=== PATIENT | male | born 1985 | race Caucasian/White ===

== ENCOUNTER 2020-01-31 15:43 | Inpatient (IN) | payer MEDICARE, MEDICAID, SELFPAY ==
[2020-01-31] VITALS (7 sets, daily range): BP systolic 147–230; BP diastolic 80–92; PULSE 94–121; RESP 22–32; TEMP 36.1–36.5; O2SAT 90–99; BMI 35.6
--- NOTE | ~2020-01-31 | XR_ITS ---
EXAMINATION: XR chest 1V portable EXAM DATE: 01/31/2020 16:19 INDICATION: CHF. Large mid edema. TECHNIQUE: Portable AP frontal chest x-ray was obtained. Comparison is made to prior examination from 09/20/2015. FINDINGS: There is enlarged cardiac silhouette and pulmonary vascular congestion, increase in these f indings compared to previous examination. Enlarged cardiac silhouette could also be caused by some co mponent of pericardial effusion. Small pleural effusions. Again there is abnormal reticulation, appea danny suspicious for mild pulmonary edema. Given patient's age, chronic interstitial lung disease les s likely. No pneumothorax or confluent consolidation. There are mild bony degenerative changes. IMPRESSION: 1. Findings consistent with CHF exacerbation. 2. Cardiac silhouette shape could indicate some component of pericardial effusion. Reviewed, dictated and finalized at location A. IMPRESSION: 1. Findings consistent with CHF exacerbation. 2. Cardiac silhouette shape could indicate some component of pericardial effus ion.
--- NOTE | ~2020-01-31 | US_ITS ---
EXAMINATION: US venous doppler LE EXAM DATE: 02/01/2020 17:06 INDICATION: Bilateral leg swelling. Elevated d-dimer. TECHNIQUE: Multiple grayscale, color flow and Doppler images of the lower extremity deep venous syste ms bilaterally were obtained and reviewed. There is no prior study for comparison. FINDINGS: Right side: The right common femoral, femoral and profunda veins demonstrate normal color flow, respi ratory variation, augmentation and compressibility. Compressibility, color flow confirmed within the right popliteal, posterior tibial, peroneal, and greater saphenous veins. Left side: The left common femoral, femoral and profunda veins demonstrate normal color flow, respira tory variation, augmentation and compressibility. Compressibility, color flow confirmed within the l eft popliteal, posterior tibial, peroneal, and greater saphenous veins. IMPRESSION: 1. No lower extremity deep venous thrombosis bilaterally. Reviewed, dictated and finalized at location A.
--- NOTE | ~2020-01-31 | XR_ITS ---
EXAMINATION: XR chest 2V DATE: 02/01/2020 13:55 INDICATION: Shortness of breath. TECHNIQUE: Frontal and lateral views of the chest were obtained. COMPARISON: Chest single view 01/31/2020 FINDINGS: There is a diffuse interstitial pattern in the lungs, consistent with mild pulmonary edema. There are airspace opacities at left lung base. There are small pleural effusions. No pneumothorax. Cardiomegaly is noted. Small median sternotomy wires are noted. IMPRESSION: 1. Mild pulmonary edema. 2. Worsened airspace opacities at left lung base, consistent with atelectasis versus pneumonia. 3. Small pleural effusions. 4. Cardiomegaly. Reviewed, dictated and finalized at location A. IMPRESSION: 1. Mild pulmonary edema. 2. Worsened airspace opacities at left lung base, consistent with atelectasis v ersus pneumonia. 3. Small pleural effusions. 4. Cardiomegaly.
--- NOTE | ~2020-01-31 | CT_ITS ---
EXAMINATION: CTA chest PE protocol EXAM DATE: 02/01/2020 17:11 INDICATION: Shortness of breath, cough. Dropping saturation. Diaphoretic. TECHNIQUE: Spiral CTA of the chest (pulmonary arteries) was performed with 100 cc Omnipaque 350 intr avenous contrast injection. Images were acquired during the pulmonary arterial phase. Coronal maxi mum intensity projection 3D-reconstructions were created by the technologist on dedicated workstation . Axial, coronal and sagittal reformatted images were reviewed. The dose-length product (DLP) for t his examination was 823.23 mGy-cm. The exposure was tailored according to patient size (auto mA exp osure control), and iterative reconstruction (ASIR) was used as additional dose reduction technique. There is no prior study for comparison. FINDINGS: There is good pulmonary arterial enhancement, but limitations from respiratory motion throu ghout the exam.. There is loss of attenuation of a right basilar segmental pulmonary artery, probable segmental pulmonary embolism. No thoracic aortic dissection. There is moderate amount of interlobu lar septal thickening and groundglass airspace disease most likely pulmonary edema, with small bilate ral pleural effusions and trace pericardial effusion. There is bibasilar airspace disease posteriorly which could be atelectasis and/or pneumonia. Mediastinal lymph nodes which are probably reactive. Sm all amount of perihepatic ascites. There are no pleural or pericardial effusions. Tracheobronchial tree is patent. There is no mediastinal, hilar or axillary lymphadenopathy. There is no pneumoth orax. There is severe cardiomegaly. No evidence of coronary arterial calcification. Upper abdomen is unremarkable. There is thoracic spondylosis without osteoblastic or osteolytic lesions identifi ed. IMPRESSION: 1. Respiratory motion limiting evaluation, with probable right basilar segmental pulmonary embolism. 2. Significant cardiomegaly. Bilateral groundglass airspace disease with interlobular septal thicke reina most likely moderate pulmonary edema. CHF exacerbation. 3. Bilateral subsegmental atelectasis and/or pneumonia. 4. Small pleural effusions. Reviewed, dictated and finalized at location A. IMPRESSION: 1. Respiratory motion limiting evaluation, with probable right basilar segment al pulmonary embolism. 2. Significant cardiomegaly. Bilateral groundglass airspace disease with inte rlobular septal thickening most likely moderate pulmonary edema. CHF exacerbati on. 3. Bilateral subsegmental atelectasis and/or pneumonia. 4. Small pleural effusions.
--- NOTE | 2020-01-31 16:04 | ECG_ITS ---
Measurements Intervals [place] Rate: 114 P: 61 KS: 115 QRS: 107 QRSD: 184 T: -76 QT: 382 QTc: 528 Interpretive Statements SINUS TACHYCARDIA WITH SHORT [place] INTERVAL RIGHT AXIS DEVIATION LEFT BUNDLE BRANCH BLOCK BASELINE ARTIFACT- I, II, III, AVR, AVL, AVF, V1, V4-V6 ABNORMAL ECG Electronically Signed On 02-01-2020 7:26:42 CDT by Micky Leach D.O.
--- NOTE | 2020-01-31 16:11 | ED.SOB ---
HPI - SOB/Dyspnea General Chief Complaint: Arrhythmia/Palpitations Stated Complaint: sent from doctor Source: patient Mode of arrival: ambulatory Limitations: no limitations History of Present Illness HPI Narrative: Presented to Dr. Man's office ~ 15:30 with scrotal swelling for the last 2 - 4 weeks. He agreed to be seen and be hospitalized provided it was only at [facility] 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 Pt is a poor historian, uncertain about onset, duration and magnitude of symptoms. He states in December he had cold and was laying around a lot. His legs and scrotum have become swollen. He does get up to urinate at night but not sure how often or if it's recently been worse. He denies feeling SOB or VILLA. He denies chest pain, nausea, vomiting. Review of previous chart shows he was seen in clinic in October with leg edema. His furosemide was increased from 20 to 40 mg daily which he states he's been taking. He reports seeing Dr. Duncan at [facility] in November who did not change his medicine. He states the office was going to call him when it was time to return. Related Data Home Medications Medication Instructions Recorded Confirmed aspirin 81 mg tablet,delayed 81 mg PO DAILY 10/10/19 01/31/20 release carvedilol 6.25 mg tablet 6.25 mg PO Q12H 10/10/19 01/31/20 metformin 1,000 mg tablet 1,000 mg PO BID 10/10/19 01/31/20 dulaglutide [Trulicity] 0.75 mg SUBCUT WEEKLY 01/31/20 01/31/20 Allergies Allergy/AdvReac Type Severity Reaction Status Date / Time No Known Allergies Allergy Verified 01/31/20 06:56 Review of Systems Constitutional: Constitutional: Denies chills, Denies fever(s) and Denies weakness Eyes: Eyes: Denies change in vision ENT: Denies dizziness, Denies nasal congestion and Denies sore throat Cardiovascular: Cardiovascular: Denies chest pain and Denies radiating jaw, neck or arm pain Respiratory: Respiratory: Denies cough and Denies wheezing Gastrointestinal: Gastrointestinal: Reports no additional gastrointestinal complaints Genitourinary: Genitourinary: Denies dysuria Musculoskeletal: Musculoskeletal: Denies muscle cramps Integumentary/Breasts: Skin/Breast: Denies rash Neurologic: Denies dizziness Psychiatric: Psychiatric: Denies anxiety and Denies depression Endocrine: Endocrine: Denies fatigue Hematologic/Lymphatic: Hematologic/Lymphatic: Denies easy bruising Allergic/Immunologic: Allergic/Immunologic: Denies wheezing PMFSH Past Medical History Medical History (Updated 01/31/20 @ 19:35 by Jarod Molina MD) CHF (congestive heart failure) DM2 (diabetes mellitus, type 2) ANUSHKA (generalized anxiety disorder) Gout Hypertension Overweight Systolic heart failure Transposition of great arteries Surgical History Surgical History (Updated 01/31/20 @ 17:54 by Jarod Molina MD) History of heart or great vessel surgery Social History Social History (Updated 01/31/20 @ 19:22 by Jarod Molina MD) Social History: lives with research kennel supervisor/girlfriend Smoking status: Never smoker Alcohol intake: never Substance use: never Substance use type: does not use Additional occupation/education comments: On Disability due to heart condition. Gender identity (if verbalized by the patient): Male Spiritual care concerns: No Agree to blood products: Yes Exam Narrative: Exam Narrative: alert, sitting up, speaking in 5 -6 word sentences. Const: General: diaphoretic; No confusion Orientation/consciousness: patient oriented x3 Limitations: No altered mental status Other: pink HENMT: Head: normal to inspection Face and sinus: sinuses nontender Mouth: Yes moist mucous membranes Eyes: Conjunctivae: conjunctivae normal Neck: Neck: no lymphadenopathy Chest: Chest palpation & inspection: normal inspection of the chest Resp: Effort & Inspection:
[2020-01-31] MEDS: FUROSEMIDE INJ 100 MG/10 ML VIAL 80 MG IV CONT (16:15)
[2020-01-31 16:17] LABS: Basophils Absolute Auto 0.04 K/mm3 (0.00-0.10); Basophils Percent Auto 0.6 % (0.0-1.0); Eosinophils Absolute Auto 0.06 K/mm3 (0.02-0.50); Eosinophils Percent Auto 0.9 % (1.0-6.0); Hematocrit 40.3 % (40.0-54.0); Hemoglobin 13.1 g/dL (14.0-18.0); Immature Granulocyte Absolute 0.02 K/mm3 (0.00-0.00); Immature Granulocyte Percent A 0.3 % (0.0-0.0); Lymphocytes Absolute Auto 1.35 K/mm3 (1.10-4.50); Lymphocytes Percent Auto 20.5 % (18.0-42.0); Mean Corpuscular HGB Conc 32.5 g/dL (32.0-36.0); Mean Corpuscular Hemoglobin 27.3 pg (27.0-31.0); Mean Corpuscular Volume 84.1 fL (78.0-102.0); Mean Platelet Volume 10.6 fl (8.7-11.0); Monocytes Absolute Auto 0.63 K/mm3 (0.10-0.90); Monocytes Percent Auto 9.6 % (2.0-11.0); Neutrophils Absolute Auto 4.5 K/mm3 (1.7-7.2); Neutrophils Percent Auto 68.1 % (50.0-70.0); Platelet Count Result 224 K/mm3 (150-420); Red Blood Count 4.79 M/mm3 (4.70-6.10); Red Cell Distribution Width 17.2 % (11.6-14.4); White Blood Count 6.6 K/mm3 (4.8-10.8)
[2020-01-31 16:31] LABS: INR 1.1; Partial Thromboplastin Time 27.6 SEC (22.3-31.6); Prothrombin Time 11.2 Seconds (9.64-11.0)
[2020-01-31] MEDS: NITROGLYCERIN SL 0.4 MG TABLET SUBLINGUAL (16:34)
[2020-01-31 16:35] LABS: Alanine Aminotransferase 23 U/L (16-63); Albumin Level 2.5 g/dL (3.4-5.0); Alkaline Phosphatase 187 U/L (46-116); Aspartate Amino Transferase 21 U/L (15-37); Bilirubin,Total 0.5 mg/dL (0.00-1.00); Blood Urea Nitrogen 14 mg/dL (7-18); Calcium 8.3 mg/dL (8.5-10.1); Carbon Dioxide 27 mmol/L (21-32); Chloride 98 mmol/L (98-108); Estimated Glomerular Filt Rate > 60; Glucose 391 mg/dL (70-99); Osmolality Calculated 294 mOsm/kg (285-295); Sodium 134 mmol/L (136-145); Total Protein 6.8 g/dL (6.4-8.2)
[2020-01-31 16:38] LABS: Troponin I 0.25 ng/mL (0.00-0.056)
[2020-01-31 16:39] LABS: BNP 2430 pg/mL (0-100)
[2020-01-31] MEDS: MAGNESIUM SULF 2 GM/WATER 50ML 2 GM/50 ML BAG IVPB (17:12)
[2020-01-31] MEDS: ASPIRIN 81 MG CHEWABLE TABLET 324 MG PO (17:32)
[2020-01-31] MEDS: ENOXAPARIN 40 MG/0.4 ML SYRINGE SUB-Q (17:33)
[2020-01-31] MEDS: carvediloL 6.25 MG TABLET PO (17:55)
--- NOTE | 2020-01-31 18:54 | ADMGEN ---
This patient, Franko Orr, was admitted to 2nd Floor Room 204-2. Patient/family oriented to hospital policies and general routines including ID bracelet, bed and alarms, visiting hours, pain management, procedures, bathroom and other care routines, personal items, smoking policy, room service/diet, and visiting hours. Valuables list has been completed. Tre has brought in his CPAP Information on how to activate the Rapid Response Team has been discussed. Patient/Family are encouraged to report perceived risks to care and to ask questions if they do not understand what they are told or what they should do.
[2020-01-31] MEDS: INSULIN GLARGINE (*BKC) 100 UNITS/ML 31 UNITS SUB-Q (20:37)
[2020-01-31 20:45] LABS: Glucose Point of Care 206 (65-105)
--- NOTE | 2020-01-31 20:49 | PC.NURSE ---
pt given dinner tray at request, RT is in setting up his cpap machine now, tinsley to gravity
[2020-02-01] VITALS (9 sets, daily range): BP systolic 128–158; BP diastolic 65–84; PULSE 98–108; RESP 20–22; TEMP 36–36.6; O2SAT 88–96
--- NOTE | 2020-02-01 00:01 | ECG_ITS ---
Measurements Intervals [place] Rate: 105 P: 56 DC: 184 QRS: 52 QRSD: 181 T: 235 QT: 407 QTc: 538 Interpretive Statements SINUS TACHYCARDIA LEFT BUNDLE BRANCH BLOCK BASELINE ARTIFACT- V1 ABNORMAL ECG Electronically Signed On 02-01-2020 7:25:47 CDT by Micky Leach D.O.
[2020-02-01 00:40] LABS: Anion Gap 10.9 mmol/L (7-16); Blood Urea Nitrogen 14 mg/dL (7-18); Calcium 8.8 mg/dL (8.5-10.1); Carbon Dioxide 30 mmol/L (21-32); Chloride 100 mmol/L (98-108); Estimated CRCL calculation 170 ml/min; Estimated Glomerular Filt Rate > 60; Glucose 232 mg/dL (70-99); Osmolality Calculated 291 mOsm/kg (285-295); Potassium 3.9 mmol/L (3.5-5.1); Sodium 137 mmol/L (136-145)
[2020-02-01 00:41] LABS: Magnesium 1.3 mg/dL (1.8-2.4)
--- NOTE | 2020-02-01 01:10 | PC.NURSE ---
0041 Dr. Molina notified of pt's Troponin results of 0.20. New orders recieved and noted for a magnesium rider x1 and lasix 20 mg IVP x1 now.
[2020-02-01] MEDS: FUROSEMIDE INJ 40 MG/4 ML VIAL 20 MG IV PUSH (01:13)
[2020-02-01] MEDS: MAGNESIUM SULF 2 GM/WATER 50ML 2 GM/50 ML BAG IVPB (01:25)
--- NOTE | 2020-02-01 01:48 | PC.NURSE ---
Resting quietly. Telemetry continues Sinus tacj BBB
--- NOTE | 2020-02-01 04:34 | PC.NURSE ---
Telemetry continues. Has denied shortness of breath. Denies chest pain. .
[2020-02-01 05:26] LABS: Hematocrit 39.5 % (40.0-54.0); Hemoglobin 12.8 g/dL (14.0-18.0); Mean Corpuscular HGB Conc 32.4 g/dL (32.0-36.0); Mean Corpuscular Volume 83.3 fL (78.0-102.0); Mean Platelet Volume 10.5 fl (8.7-11.0); Platelet Count Result 218 K/mm3 (150-420); Red Blood Count 4.74 M/mm3 (4.70-6.10); Red Cell Distribution Width 17.3 % (11.6-14.4); White Blood Count 5.9 K/mm3 (4.8-10.8)
[2020-02-01 05:46] LABS: BNP 2480 pg/mL (0-100)
[2020-02-01 05:49] LABS: Anion Gap 11.7 mmol/L (7-16); Blood Urea Nitrogen 13 mg/dL (7-18); Calcium 8.7 mg/dL (8.5-10.1); Carbon Dioxide 30 mmol/L (21-32); Chloride 99 mmol/L (98-108); Estimated CRCL calculation 186 ml/min; Estimated Glomerular Filt Rate > 60; Glucose 224 mg/dL (70-99); Osmolality Calculated 291 mOsm/kg (285-295); Potassium 3.7 mmol/L (3.5-5.1); Sodium 137 mmol/L (136-145)
[2020-02-01 05:53] LABS: Troponin I 0.16 ng/mL (0.00-0.056)
--- NOTE | 2020-02-01 06:01 | ECG_ITS ---
Measurements Intervals [place] Rate: 103 P: 51 ME: 129 QRS: 91 QRSD: 186 T: -74 QT: 420 QTc: 551 Interpretive Statements SINUS TACHYCARDIA LEFT ATRIAL ENLARGEMENT RIGHT AXIS DEVIATION LEFT BUNDLE BRANCH BLOCK BASELINE ARTIFACT- AVR, AVL, V1-V3 ABNORMAL ECG Electronically Signed On 02-01-2020 7:27:25 CDT by Micky Leach D.O.
--- NOTE | 2020-02-01 06:01 | PC.NURSE ---
Troponin I test results reported to dr. Molina; No new orders at this time.
[2020-02-01 06:30] LABS: Magnesium 1.3 mg/dL (1.8-2.4)
[2020-02-01 08:45] LABS: Glucose Point of Care 208 (65-105)
[2020-02-01] MEDS: lisinopriL 20 MG TABLET PO (09:29)
[2020-02-01] MEDS: SERTRALINE HCL 50 MG TABLET 200 MG PO (09:29)
[2020-02-01] MEDS: carvediloL 6.25 MG TABLET PO ×2 (09:29→20:40)
[2020-02-01] MEDS: metFORMIN HCL 500 MG TABLET 1000 MG PO ×2 (09:30→17:25)
[2020-02-01] MEDS: MAGNESIUM SULF 4 GM/WATER100ML 4 GM/100 ML BAG IVPB ×2 (11:46→15:16)
[2020-02-01 12:01] LABS: Lactic Acid 1.3 mmol/L (0.4-2.0)
--- NOTE | 2020-02-01 12:01 | ECG_ITS ---
Measurements Intervals [place] Rate: 97 P: 70 CA: 167 QRS: 89 QRSD: 185 T: -88 QT: 429 QTc: 546 Interpretive Statements SINUS RHYTHM POSSIBLE LEFT ATRIAL ENLARGEMENT LEFT BUNDLE BRANCH BLOCK ABNORMAL ECG Electronically Signed On 02-01-2020 11:51:51 CDT by Micky Leach D.O.
[2020-02-01 12:04] LABS: Glucose Point of Care 182 (65-105)
[2020-02-01 12:05] LABS: Troponin I 0.15 ng/mL (0.00-0.056)
[2020-02-01 12:06] LABS: BNP 2720 pg/mL (0-100); Phosphorus 4.2 mg/dL (2.6-4.7)
[2020-02-01] MEDS: FLUTICASONE PROP 110 MCG INHALER 12 GM (*SP) 2 PUFF INHALATION ×2 (13:02→23:56)
[2020-02-01] MEDS: FUROSEMIDE INJ 40 MG/4 ML VIAL IV PUSH ×2 (13:02→17:25)
[2020-02-01] MEDS: PHARMACIST COMMUNICATION ORDER 1 EACH XX (13:10)
--- NOTE | 2020-02-01 14:06 | PC.NURSE ---
1345 lg stool on bsc. into wc and down to xray. remains to have swelling up into buttocks 3+
--- NOTE | 2020-02-01 14:09 | PM.IMHP ---
H&P: HPI History of Present Illness Chief complaint: sent from doctor <Karmen Archibald NP - Last Filed: 02/01/20 16:44> Narrative: Franko Orr is a 34 year old male admitted with Arrhythmia/Palpitations sent over to hospital from his PCP doctor's office. Pulse 109-113. He was tachypneic with decreased breath sounds, had Jugular venous distension and a heart murmur (2/6 pansystolic murmur loudest at apex. ) He became SOB when supine for over a minute. He had scrotal swelling, to the size of a softball, penile swelling with catheter in place, with patent Urinary Catheter in place and draining. Franko presented with 2+ pitting thigh and leg edema; and 1+ pedal edema. Within 2 hours of getting 80 mg Lasix and NTG 0.4 mg, Fanta had 1,800 ml of urine output and Symptomatically pt felt better. Per ED note: He had presented to Dr. Man's office ~ 15:30 with scrotal swelling for the last 2 - 4 weeks. He agreed to be seen and be hospitalized provided it was only at [facility] He has a hx of obesity, systolic heart failure, repair of transposition of great vessels, Type 2 DM without insulin, hypertension and obesity. Pt. is a poor historian, uncertain about onset, duration and magnitude of symptoms. He states in December he had cold and was laying around a lot. His legs and scrotum have become swollen. He does get up to urinate at night but not sure how often or if it's recently been worse. He denies feeling SOB or VILLA. He denies chest pain, nausea, vomiting. Review of previous chart shows he was seen in clinic in October with leg edema. His furosemide was increased from 20 to 40 mg daily which he states he's been taking. He reports seeing Dr. Duncan at [facility] in November who did not change his medicine. He states the office was going to call him when it was time to return. Pt voices desire of wanting to get rid of his fluids then go home. He indicated an understanding he had worsening of his heart failure. He acknowledged his troponin, a marker for heart damage, is elevated and may mean he has had damage to his heart. That damage could result in his heart failure worsening. If he stayed at [facility]. we may not have the ability to adequately do the diagnostic tests needed to determine appropriate treatment or the expertise to treat him. This could result in his . This could be preventable if he was transferred to [facility] which patient refused. This was discussed in the presence of Anay Obregon. He asked several times if he could sign out if he decided to. He was told that's not advisable put is an option if he wishes to do so. Given the patient was either going to sign out AMA and go home, or be admitted to [facility], pt was admitted for diuresis, cardiac monitoring, glucose control and treatment of hypomagnesemia. Pt does want full resuscitation. Differential diagnosis: Likely congestive heart failure, community acquired pneumonia and other (M.I., low albumin causing anasarca). Today, Franko continues to say that he wants to go home as soon as possible even bringing up leaving AMA. Again today Dr. Man and I advised Franko to stay in the hospital for further IV diuresis, K replacement, and magnesium replenishment; while also acknowledging that Franko does have the right to leave AMA if he feels that is best for him but with Franko knowing that he is at risk for sudden , having heart attack, respiratory distress and failure, and/or possibly more if he leaves AMA. After reviewing Franko's elevated troponin levels and rising BNPs, I have ordered Lasix 40 mg IV b.i.d. as well as oral potassium replenishment 40 mg b.i.d. Ordered fluid restriction. He has a Jacobs indwelling catheter in place for strict I/Os. His magnesium level remained low today so I have replenished that with 4 g of Mag IV this morning and in the afternoon. A repeat Mag level will be completed in the morning, along with CBC, CMP, cardiac panel, and BNP. I have called his
[2020-02-01] MEDS: ALBUTEROL SULFATE (*SP) INHALER 2 PUFF INHALATION ×2 (15:17→20:39)
[2020-02-01] MEDS: DIAZEPAM 5 MG TABLET PO (15:18)
[2020-02-01 15:59] LABS: Thyroid Stimulating Hormone Reflex 2.98 u/IU/mL (0.36-3.74)
[2020-02-01 16:15] LABS: D Dimer 1.75 mg/L (0.19-0.50)
--- NOTE | 2020-02-01 16:16 | PC.NURSE ---
Karmen Archibald NP notified of critical D Dimer of 1.75.
[2020-02-01 16:20] LABS: Glucose Point of Care 102 (65-105)
--- NOTE | 2020-02-01 16:21 | PC.NURSE ---
1520 mag infusing. morales leslie. reclined in recliner. claims he feels anxious and claims he can have med for anxiety. given as ordered. cont to talk with staff. getting diaphrotic color is ashen. blood sugar obtained 102. eys roll back head sways. foamy around mouth. talks but tongue sounds thick. bs 102. marketing segment manager aware. o2 @ 2lpm per nc 94%
[2020-02-01 16:36] LABS: Base Excess ABG 4.5 mmol/L (0-2); HCO3 ABG 28.3 mmol/L (23-29); Oxygen Content ABG 17.3 %vol (16.0-22.0); Oxygen Saturation ABG 91.3 % (95-97); Oxyhemoglobin 90.1 % (94-100); PCO2 ABG 39.4 mmHg (35-45); Total Hemoglobin 13.7 g/dL; pH ABG 7.47 (7.35-7.45)
[2020-02-01 16:38] LABS: Device CPAP; Modified Allen's Test Pass; Site Drawn RIGHT RADIAL
--- NOTE | 2020-02-01 16:42 | PC.NURSE ---
1620 has c-pap on attempting to bleed o2 in @ 3l. spo2 88-90% speaking clearer. skin not as diaphrotic. does not chair reclined. feet up on stool. sr on tele. rates 104.
--- NOTE | 2020-02-01 16:44 | PC.NURSE ---
1645 down to xray. ask why he is going down to xray again. explained the silvia and he shakes head and does not remember. speech is clear.
[2020-02-01 17:04] LABS: Creatine Kinase 57 U/L (39-308)
[2020-02-01 17:09] LABS: Troponin I 0.14 ng/mL (0.00-0.056)
[2020-02-01 17:10] LABS: Magnesium 3.1 mg/dL (1.8-2.4)
[2020-02-01] MEDS: POTASSIUM CHLORIDE 20 MEQ TABLET 40 MEQ PO (17:25)
[2020-02-01] MEDS: ENOXAPARIN 40 MG/0.4 ML SYRINGE SUB-Q (17:26)
[2020-02-01 17:38] LABS: Glucose Point of Care 102 (65-105)
--- NOTE | 2020-02-01 17:46 | PC.NURSE ---
1730 back in room from xray. more awake and talkative at this time. accucheck done 102. escalation engineer aware and routine insulin held. eating supper. feet up on stool. claims he feels alot more relaxed since anxiety med given. feet up on stool.
[2020-02-01] MEDS: APIXABAN 2.5 MG TABLET 10 MG PO (20:40)
[2020-02-01] MEDS: INSULIN GLARGINE (*BKC) 100 UNITS/ML 31 UNITS SUB-Q (20:41)
[2020-02-01 20:59] LABS: Glucose Point of Care 207 (65-105)
--- NOTE | 2020-02-01 22:05 | PC.NURSE ---
pt sleeping in recliner, respirations even and regular, no evidence of distress noted, call light and belongings within reach.
[2020-02-02] VITALS (10 sets, daily range): BP systolic 113–138; BP diastolic 55–85; PULSE 79–108; RESP 16–20; TEMP 35.7–36.6; O2SAT 91–97
--- NOTE | 2020-02-02 01:30 | PC.NURSE ---
pt sleeping in chair, respirations even and regular, no evidence of distress noted
[2020-02-02 04:46] LABS: Glucose Point of Care 79 (65-105)
--- NOTE | 2020-02-02 04:49 | PC.NURSE ---
pt woke up diaphoretic, denies chest pain or sob, blood glucose checked and result of 79. pt given juice and snack
[2020-02-02 05:30] LABS: Basophils Absolute Auto 0.03 K/mm3 (0.00-0.10); Basophils Percent Auto 0.5 % (0.0-1.0); Eosinophils Absolute Auto 0.07 K/mm3 (0.02-0.50); Eosinophils Percent Auto 1.2 % (1.0-6.0); Immature Granulocyte Absolute 0.03 K/mm3 (0.00-0.00); Immature Granulocyte Percent A 0.5 % (0.0-0.0); Lymphocytes Absolute Auto 1.08 K/mm3 (1.10-4.50); Lymphocytes Percent Auto 18.3 % (18.0-42.0); Mean Corpuscular Hemoglobin 26.8 pg (27.0-31.0); Mean Corpuscular Volume 86.6 fL (78.0-102.0); Mean Platelet Volume 10.2 fl (8.7-11.0); Monocytes Absolute Auto 0.54 K/mm3 (0.10-0.90); Monocytes Percent Auto 9.2 % (2.0-11.0); Neutrophils Absolute Auto 4.2 K/mm3 (1.7-7.2); Neutrophils Percent Auto 70.3 % (50.0-70.0); Platelet Count Result 226 K/mm3 (150-420); Red Blood Count 4.85 M/mm3 (4.70-6.10); Red Cell Distribution Width 17.4 % (11.6-14.4); White Blood Count 5.9 K/mm3 (4.8-10.8)
[2020-02-02] MEDS: ALBUTEROL SULFATE (*SP) INHALER 2 PUFF INHALATION ×4 (05:37→21:10)
[2020-02-02 05:58] LABS: Alanine Aminotransferase 17 U/L (16-63); Albumin Level 2.2 g/dL (3.4-5.0); Alkaline Phosphatase 162 U/L (46-116); Anion Gap 5.1 mmol/L (7-16); Aspartate Amino Transferase 21 U/L (15-37); BNP 1600 pg/mL (0-100); Bilirubin,Total 0.7 mg/dL (0.00-1.00); Blood Urea Nitrogen 14 mg/dL (7-18); Calcium 8.9 mg/dL (8.5-10.1); Carbon Dioxide 37 mmol/L (21-32); Chloride 102 mmol/L (98-108); Creatine Kinase 34 U/L (39-308); Estimated CRCL calculation 160 ml/min; Estimated Glomerular Filt Rate > 60; Glucose 116 mg/dL (70-99); Magnesium 1.7 mg/dL (1.8-2.4); Osmolality Calculated 291 mOsm/kg (285-295); Potassium 4.1 mmol/L (3.5-5.1); Sodium 140 mmol/L (136-145); Total Protein 6.6 g/dL (6.4-8.2)
[2020-02-02 06:00] LABS: Troponin I 0.15 ng/mL (0.00-0.056)
--- NOTE | 2020-02-02 06:05 | PC.NURSE ---
Dr Man notified of pt's critical troponin results. No new orders at this time.
[2020-02-02] MEDS: APIXABAN 2.5 MG TABLET 10 MG PO ×2 (09:25→21:10)
[2020-02-02] MEDS: SERTRALINE HCL 50 MG TABLET 200 MG PO (09:25)
[2020-02-02] MEDS: POTASSIUM CHLORIDE 20 MEQ TABLET 40 MEQ PO (09:26)
[2020-02-02] MEDS: FUROSEMIDE INJ 40 MG/4 ML VIAL IV PUSH ×2 (09:26→18:00)
[2020-02-02] MEDS: lisinopriL 20 MG TABLET PO (09:26)
[2020-02-02] MEDS: carvediloL 6.25 MG TABLET PO ×2 (09:26→21:11)
[2020-02-02] MEDS: MAGNESIUM SULF 4 GM/WATER100ML 4 GM/100 ML BAG IVPB (11:43)
[2020-02-02] MEDS: FLUTICASONE PROP 110 MCG INHALER 12 GM (*SP) 2 PUFF INHALATION ×2 (11:43→23:35)
[2020-02-02] MEDS: SPIRONOLACTONE 25 MG TABLET PO (11:43)
[2020-02-02] MEDS: MAGNESIUM OXIDE 400 MG TABLET PO ×2 (12:38→18:00)
[2020-02-02 14:03] LABS: Glucose Point of Care 224 (65-105)
--- NOTE | 2020-02-02 14:24 | PM.IMPN ---
Progress Note: A&P Assessment and Plan (1) Acute on chronic systolic CHF (congestive heart failure): Code(s): I50.23 - Acute on chronic systolic (congestive) heart failure Status: Acute Assessment and Plan: tachypneic with abnormal breath sounds (wheezing, coarse, crackles) SOB when supine for over a minute; plus scrotal swelling, 2-3+ pitting thigh and leg edema; and 2+ pedal edema. Acute on Chronic congestive Systolic heart failure Exacerbation, Heart attack or IA, Cardiac ischemia caused by fluid overload (mildly elevated Troponins are stable when checked daily), Respiratory distress caused by Systolic Heart Failure, low albumin causing anasarca). goal diurese, get 3L output daily, using 40mg IV lasix BID with PRN lasix as needed. also started Sprinolactone today. 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 replenished potassium with oral replenished mag daily with IV Continue fluid restriction. Continue Jacobs indwelling catheter in place for strict I/Os. called his Judicial Registrar Dr. Duncan's office, requested past office notes as well as a past MINNIE results. December of 2017 his MINNIE showed left ventricular enlargement, hypertrophy with severely reduced systolic function, LVEF 25-30, right ventricular systolic function at the lower limit of normal, moderate to severe aortic regurg, mild mitral regurg. Franko has been hesitant and refused to pursue any surgical intervention despite swimming pool maintenance encouragement. During this last office visit Dr. Duncan discussed that Franko may need an LVAD or heart transplantation, but needed further evaluation by congenital medicare specialist or surgeon in the [place] area or in the [place] area. I have provided Frakno with the contact information for Dr. Magen Reyes, a well-known heart surgeon with [facility] in [place], known for congenital heart surgeries and corrections. ordered incentive spirometry to be educated and completed every hour. He is reaching 1500ml volumes with his incentive spirometer. elevated D-dimer, + CTA chest + for PE, started on Eliquis. venous dopplers BLE showed no DVTs. Ordered Mucinex and Albuterol. -->ECHO completed and Report not available yet. His albumin remains low, will order protein supplements. Continue diuresis overnight and continue monitor on telemetry. Ordered continuous pulse oximetry as well. patient refusing transfer to a tertiary hospital for higher level of care and or for evaluation by swimming pool maintenance and or evaluation by surgeon, despite multiple physician and provider attempts to educate and encourage patient to do so. (2) Hypomagnesemia: Code(s): E83.42 - Hypomagnesemia Status: Acute Assessment and Plan: again low mag <2 replenished that with 4 g of Mag IV this morning and in the afternoon. repeat Mag level will be completed in the morning, along with CBC, CMP, cardiac panel, and BNP. (3) Diabetes mellitus type 2, uncontrolled: Qualifiers: Glycemic state: with hyperglycemia Qualified Code(s): E11.65 - Type 2 diabetes mellitus with hyperglycemia Code(s): E11.65 - Type 2 diabetes mellitus with hyperglycemia Status: Acute Assessment and Plan: glucose levels were 200-300s at admission glucose levels today 70-100s. continue monitoring glucose levels toloerating low sodium diet ordered glucose bedside checks ACHS and PRN (4) Cardiac ischemia: Code(s): I25.9 - Chronic ischemic heart disease, unspecified Status: Acute Assessment and Plan: troponins remain mildly elevated will repeat in the morning may be related to Acute on Chronic congestive Systolic heart failure Exacerbation, Cardiac ischemia caused by fluid overload (mildly elevated Troponins are stable when checked daily), significantly reduced EF, strain caused by obesity and fluidoverload, moderate to dayne
--- NOTE | 2020-02-02 15:03 | PM.IMPN ---
Progress Note: A&P Assessment and Plan (1) Acute on chronic systolic CHF (congestive heart failure): Code(s): I50.23 - Acute on chronic systolic (congestive) heart failure Status: Acute Assessment and Plan: tachypneic with abnormal breath sounds (wheezing, coarse, crackles) SOB when supine for over a minute; plus scrotal swelling, 2-3+ pitting thigh and leg edema; and 2+ pedal edema. Acute on Chronic congestive Systolic heart failure Exacerbation, Heart attack or [place], Cardiac ischemia caused by fluid overload (mildly elevated Troponins are stable when checked daily), Respiratory distress caused by Systolic Heart Failure, low albumin causing anasarca). goal diurese, get 3L output daily, using 40mg IV lasix BID with PRN lasix as needed. also started Sprinolactone today. 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 replenished potassium with oral replenished mag daily with IV Continue fluid restriction. Continue Jacobs indwelling catheter in place for strict I/Os. called his Political Director Dr. Duncan's office, requested past office notes as well as a past MINNIE results. December of 2017 his MNINIE showed left ventricular enlargement, hypertrophy with severely reduced systolic function, LVEF 25-30, right ventricular systolic function at the lower limit of normal, moderate to severe aortic regurg, mild mitral regurg. Franko has been hesitant and refused to pursue any surgical intervention despite production solderer encouragement. During this last office visit Dr. Duncan discussed that Franko may need an LVAD or heart transplantation, but needed further evaluation by congenital network management specialist or surgeon in the [place] area or in the [place] area. I have provided Franko with the contact information for Dr. Magen Reyes, a well-known heart surgeon with [facility] in [place], known for congenital heart surgeries and corrections. ordered incentive spirometry to be educated and completed every hour. He is reaching 1500ml volumes with his incentive spirometer. elevated D-dimer, + CTA chest + for PE, started on Eliquis. venous dopplers BLE showed no DVTs. Ordered Mucinex and Albuterol. -->ECHO completed and Report not available yet. His albumin remains low, will order protein supplements. Continue diuresis overnight and continue monitor on telemetry. Ordered continuous pulse oximetry as well. patient refusing transfer to a tertiary hospital for higher level of care and or for evaluation by production solderer and or evaluation by surgeon, despite multiple physician and provider attempts to educate and encourage patient to do so. (2) Hypomagnesemia: Code(s): E83.42 - Hypomagnesemia Status: Acute Assessment and Plan: again low mag <2 replenished that with 4 g of Mag IV this morning and in the afternoon. repeat Mag level will be completed in the morning, along with CBC, CMP, cardiac panel, and BNP. (3) Diabetes mellitus type 2, uncontrolled: Qualifiers: Glycemic state: with hyperglycemia Qualified Code(s): E11.65 - Type 2 diabetes mellitus with hyperglycemia Code(s): E11.65 - Type 2 diabetes mellitus with hyperglycemia Status: Acute Assessment and Plan: glucose levels were 200-300s at admission glucose levels today 70-100s. continue monitoring glucose levels toloerating low sodium diet ordered glucose bedside checks ACHS and PRN (4) Cardiac ischemia: Code(s): I25.9 - Chronic ischemic heart disease, unspecified Status: Acute Assessment and Plan: troponins remain mildly elevated will repeat in the morning may be related to Acute on Chronic congestive Systolic heart failure Exacerbation, Cardiac ischemia caused by fluid overload (mildly elevated Troponins are stable when checked daily), significantly reduced EF, strain caused by obesity and fluidoverload, moderate to dayne
[2020-02-02 17:35] LABS: Glucose Point of Care 219 (65-105)
--- NOTE | 2020-02-02 18:45 | PC.NURSE ---
Patient sitting up in chair resting. Denies any needs at present. Call light at side. BLE elevated.
[2020-02-02] MEDS: INSULIN GLARGINE (*BKC) 100 UNITS/ML 31 UNITS SUB-Q (21:12)
[2020-02-02 21:20] LABS: Glucose Point of Care 265 (65-105)
[2020-02-03] VITALS (13 sets, daily range): BP systolic 112–142; BP diastolic 59–88; PULSE 88–108; RESP 14–20; TEMP 35.6–36.6; O2SAT 90–98
[2020-02-03 05:37] LABS: Hemoglobin 12.7 g/dL (14.0-18.0); Mean Corpuscular HGB Conc 31.8 g/dL (32.0-36.0); Mean Corpuscular Hemoglobin 27.1 pg (27.0-31.0); Mean Corpuscular Volume 85.5 fL (78.0-102.0); Mean Platelet Volume 10.3 fl (8.7-11.0); Platelet Count Result 211 K/mm3 (150-420); Red Blood Count 4.68 M/mm3 (4.70-6.10); Red Cell Distribution Width 17.4 % (11.6-14.4); White Blood Count 5.4 K/mm3 (4.8-10.8)
[2020-02-03 05:58] LABS: BNP 1700 pg/mL (0-100)
[2020-02-03] MEDS: ALBUTEROL SULFATE (*SP) INHALER 2 PUFF INHALATION ×4 (06:00→20:46)
[2020-02-03 06:03] LABS: Alanine Aminotransferase 20 U/L (16-63); Albumin Level 2.3 g/dL (3.4-5.0); Alkaline Phosphatase 149 U/L (46-116); Anion Gap 8.1 mmol/L (7-16); Aspartate Amino Transferase 19 U/L (15-37); Bilirubin,Total 0.7 mg/dL (0.00-1.00); Blood Urea Nitrogen 15 mg/dL (7-18); Calcium 8.6 mg/dL (8.5-10.1); Carbon Dioxide 33 mmol/L (21-32); Chloride 101 mmol/L (98-108); Estimated CRCL calculation 164 ml/min; Estimated Glomerular Filt Rate > 60; Glucose 149 mg/dL (70-99); Magnesium 1.6 mg/dL (1.8-2.4); Osmolality Calculated 289 mOsm/kg (285-295); Potassium 4.1 mmol/L (3.5-5.1); Sodium 138 mmol/L (136-145); Total Protein 6.6 g/dL (6.4-8.2)
[2020-02-03 06:04] LABS: Creatine Kinase 39 U/L (39-308)
[2020-02-03 06:05] LABS: Troponin I 0.12 ng/mL (0.00-0.056)
--- NOTE | 2020-02-03 06:41 | PC.NURSE ---
0632 Dr. Burgess notified of critical troponin I results; No new orders at this time.
[2020-02-03] MEDS: MAGNESIUM OXIDE 400 MG TABLET PO ×3 (09:14→18:07)
[2020-02-03] MEDS: SERTRALINE HCL 50 MG TABLET 200 MG PO (09:14)
[2020-02-03] MEDS: FUROSEMIDE INJ 40 MG/4 ML VIAL IV PUSH ×2 (09:14→18:07)
[2020-02-03] MEDS: SPIRONOLACTONE 25 MG TABLET PO (09:14)
[2020-02-03] MEDS: APIXABAN 2.5 MG TABLET 10 MG PO ×2 (09:15→20:47)
[2020-02-03] MEDS: carvediloL 6.25 MG TABLET PO ×2 (09:15→20:47)
[2020-02-03] MEDS: lisinopriL 20 MG TABLET PO (09:16)
[2020-02-03 09:38] LABS: Vitamin D 25 Hydroxy 12 ng/mL (30-100)
--- NOTE | 2020-02-03 09:58 | HOMEO2EVAL ---
Home Oxygen Evaluation RC: Home Oxygen (O2) Evaluation Start: 02/03/20 20:00 Freq: ONCE Status: Active Protocol: RPE Activity Type Activity Date Activity User E-Sign Co-Sign Detail Recorded Client Recorded Date Recorded By Document 02/03/20 09:30 GWENDOLYN [id number] 02/03/20 09:58 GWENDOLYN Document 02/03/20 09:33 GWENDOLYN [id number] 02/03/20 09:58 GWENDOLYN 02/03/20 02/03/20 09:30 09:33 Home O2 Evaluation Test Phase Resting Exercise Oxygen Delivery Room Air Room Air Pulse Oximetry (90-100 %) 92 90 Pulse Rate (60-100 beats/min) 106 H 108 H Activity Tolerance Excellent Rating of Perceived Dyspnea (PD) +1 Mild, Noticeable to the Participant but Not to an Observer Rate of Perceived Exertion (PE) 9 Very light Ambulation Distance (feet) 350 Home Oxygen Evaluation Comments Walked, pushing wheelchair, on room air x 350 feet. No rests . Sp02 maintained at 90% - 92% during exercise . HR averaged 100 bpm during exercise. Encouraged deep breaths during exercise. Tolerated well. Treatment Charges O2 Evaluation
[2020-02-03] MEDS: MAGNESIUM SULF 4 GM/WATER100ML 4 GM/100 ML BAG IVPB (11:23)
[2020-02-03 11:28] LABS: Glucose Point of Care 253 (65-105)
[2020-02-03] MEDS: FLUTICASONE PROP 110 MCG INHALER 12 GM (*SP) 2 PUFF INHALATION ×2 (12:45→23:34)
--- NOTE | 2020-02-03 12:45 | PC.NURSE ---
Patient requested to speak with primary physician Dr. Man. Patient anxious about his stay and plan of care. This nurse and YOUTH ADVOCATE Karmen and Dr. Stone all spoke with patient and gave him reassurance. Patient states he would still like to speak with . Dr. Man in room to speak with patient at present.
--- NOTE | 2020-02-03 14:08 | PM.IMPN ---
Progress Note: A&P Assessment and Plan (1) Acute on chronic systolic CHF (congestive heart failure): Code(s): I50.23 - Acute on chronic systolic (congestive) heart failure Status: Acute Assessment and Plan: tachypneic with abnormal breath sounds (wheezing, coarse, crackles) SOB when supine for over a minute; plus scrotal swelling, 2-3+ pitting thigh and leg edema; and 2+ pedal edema. Acute on Chronic congestive Systolic heart failure Exacerbation, Heart attack or ID, Cardiac ischemia caused by fluid overload (mildly elevated Troponins are stable when checked daily), Respiratory distress caused by Systolic Heart Failure, low albumin causing anasarca). goal diurese, get 3L output daily, using 40mg IV lasix BID with PRN lasix as needed. also started Sprinolactone today. 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 replenished potassium with oral replenished mag daily with IV Continue fluid restriction. Continue Jacobs indwelling catheter in place for strict I/Os. called his Launderette Attendant Dr. Duncan's office, requested past office notes as well as a past MINNIE results. December of 2017 his MINNIE showed left ventricular enlargement, hypertrophy with severely reduced systolic function, LVEF 25-30, right ventricular systolic function at the lower limit of normal, moderate to severe aortic regurg, mild mitral regurg. Franko has been hesitant and refused to pursue any surgical intervention despite cellular plastics cutter encouragement. During this last office visit Dr. Duncan discussed that Franko may need an LVAD or heart transplantation, but needed further evaluation by congenital investigative research specialist or surgeon in the [place] area or in the [place] area. I have provided Franko with the contact information for Dr. Magen Reyes, a well-known heart surgeon with [facility] in [place], known for congenital heart surgeries and corrections. ordered incentive spirometry to be educated and completed every hour. He is reaching 1500ml volumes with his incentive spirometer. elevated D-dimer, + CTA chest + for PE, started on Eliquis. venous dopplers BLE showed no DVTs. Ordered Mucinex and Albuterol. -->ECHO completed and Report not available yet. His albumin remains low, will order protein supplements. Continue diuresis overnight and continue monitor on telemetry. Ordered continuous pulse oximetry as well. patient refusing transfer to a tertiary hospital for higher level of care and or for evaluation by cellular plastics cutter and or evaluation by surgeon, despite multiple physician and provider attempts to educate and encourage patient to do so. (2) Hypomagnesemia: Code(s): E83.42 - Hypomagnesemia Status: Acute Assessment and Plan: again low mag <2 replenished that with 4 g of Mag IV this morning and in the afternoon. repeat Mag level will be completed in the morning, along with CBC, CMP, cardiac panel, and BNP. (3) Diabetes mellitus type 2, uncontrolled: Qualifiers: Glycemic state: with hyperglycemia Qualified Code(s): E11.65 - Type 2 diabetes mellitus with hyperglycemia Code(s): E11.65 - Type 2 diabetes mellitus with hyperglycemia Status: Acute Assessment and Plan: glucose levels were 200-300s at admission glucose levels today 70-100s. continue monitoring glucose levels toloerating low sodium diet ordered glucose bedside checks ACHS and PRN (4) Cardiac ischemia: Code(s): I25.9 - Chronic ischemic heart disease, unspecified Status: Acute Assessment and Plan: troponins remain mildly elevated will repeat in the morning may be related to Acute on Chronic congestive Systolic heart failure Exacerbation, Cardiac ischemia caused by fluid overload (mildly elevated Troponins are stable when checked daily), significantly reduced EF, strain caused by obesity and fluidoverload, moderate to dayne
[2020-02-03 17:25] LABS: Glucose Point of Care 244 (65-105)
--- NOTE | 2020-02-03 18:25 | PC.NURSE ---
Patient sitting up in chair resting. Call light and belongings at side. Denies any needs at this time.
[2020-02-03] MEDS: INSULIN GLARGINE (*BKC) 100 UNITS/ML 31 UNITS SUB-Q (20:44)
[2020-02-03 21:07] LABS: Glucose Point of Care 254 (65-105)
--- NOTE | 2020-02-03 21:09 | PM.EVENT ---
Event Note Event Note Event Note: Patient states he feels much better today but still has some shortness of breath. Bilateral late expiratory wheezes with a few wet rales. Regular rate and rhythm. Extremities are warm and dry and pink and distal pulses are full and symmetric. There is 3+ pitting edema the lower extremities and significant scrotal swelling. IV diuresis can continue. Troponins remain elevated at 0.12. Consultation with Cardiology would be helpful as we look towards discharging him home. I have examined the patient reviewed the chart. I discussed patient's care with A Dragan POP and agree with her assessment and plan.
[2020-02-03] MEDS: APIXABAN 2.5 MG TABLET (21:38)
--- NOTE | 2020-02-03 21:45 | PC.NURSE ---
Emptied patient's urinal. Urine is light pink. BLE's, scrotum and penis remain swollen. Patient denies pain/complaints/needs @ this time. No distress noted. Call light in reach.
--- NOTE | 2020-02-03 22:00 | PC.NURSE ---
Patient watching tv. Patient denies pain/complaints/needs @ this time. No distress noted. Call light in reach.
[2020-02-04] VITALS (8 sets, daily range): BP systolic 107–134; BP diastolic 49–75; PULSE 88–106; RESP 18–20; TEMP 35.8–36; O2SAT 95–98
--- NOTE | 2020-02-04 01:30 | PC.NURSE ---
Patient appears to be sleeping by the rise and fall of his chest. Respirations even and unlabored, using CPAP. No distress noted. Call light in reach.
--- NOTE | 2020-02-04 02:50 | PC.NURSE ---
Patient ambulated to/from bathroom with SBA with steady giat. Patient used urinal. Urine a darker pink than it had been earlier. Patient denies pain/complaints/needs @ this time. No distress noted. Call light in reach.
[2020-02-04 05:31] LABS: Hematocrit 39.1 % (40.0-54.0); Hemoglobin 12.3 g/dL (14.0-18.0); Mean Corpuscular HGB Conc 31.5 g/dL (32.0-36.0); Mean Corpuscular Hemoglobin 26.9 pg (27.0-31.0); Mean Corpuscular Volume 85.6 fL (78.0-102.0); Mean Platelet Volume 10.2 fl (8.7-11.0); Platelet Count Result 203 K/mm3 (150-420); Red Blood Count 4.57 M/mm3 (4.70-6.10); Red Cell Distribution Width 17.1 % (11.6-14.4); White Blood Count 5.3 K/mm3 (4.8-10.8)
[2020-02-04 05:55] LABS: BNP 1750 pg/mL (0-100)
[2020-02-04 06:01] LABS: Alanine Aminotransferase 22 U/L (16-63); Albumin Level 2.5 g/dL (3.4-5.0); Alkaline Phosphatase 168 U/L (46-116); Anion Gap 11.5 mmol/L (7-16); Aspartate Amino Transferase 23 U/L (15-37); Bilirubin,Total 0.7 mg/dL (0.00-1.00); Blood Urea Nitrogen 15 mg/dL (7-18); Calcium 8.4 mg/dL (8.5-10.1); Carbon Dioxide 33 mmol/L (21-32); Chloride 99 mmol/L (98-108); Estimated CRCL calculation 156 ml/min; Estimated Glomerular Filt Rate > 60; Glucose 177 mg/dL (70-99); Osmolality Calculated 292 mOsm/kg (285-295); Potassium 4.5 mmol/L (3.5-5.1); Sodium 139 mmol/L (136-145); Total Protein 6.1 g/dL (6.4-8.2)
[2020-02-04] MEDS: ALBUTEROL SULFATE (*SP) INHALER 2 PUFF INHALATION ×2 (06:05→11:30)
[2020-02-04] MEDS: APIXABAN 2.5 MG TABLET 10 MG PO (09:05)
[2020-02-04] MEDS: FUROSEMIDE INJ 40 MG/4 ML VIAL IV PUSH (09:05)
[2020-02-04] MEDS: SERTRALINE HCL 50 MG TABLET 200 MG PO (09:06)
[2020-02-04] MEDS: MAGNESIUM OXIDE 400 MG TABLET PO ×2 (09:06→12:21)
[2020-02-04] MEDS: carvediloL 6.25 MG TABLET PO (09:06)
[2020-02-04] MEDS: SPIRONOLACTONE 25 MG TABLET PO (09:06)
[2020-02-04] MEDS: lisinopriL 20 MG TABLET PO (09:07)
[2020-02-04 09:14] LABS: Magnesium 1.7 mg/dL (1.8-2.4)
--- NOTE | 2020-02-04 11:28 | PM.DS ---
DS: Diagnosis Admitting Diagnosis Admitting Diagnosis: Acute on chronic systolic (congestive) heart failure <Karmen Archibald NP - Last Filed: 02/04/20 13:49> Discharge Diagnosis (1) Acute on chronic systolic CHF (congestive heart failure): Code(s): I50.23 - Acute on chronic systolic (congestive) heart failure <Karmen Archibald NP - Last Filed: 02/04/20 13:49> Status: Acute <Karmen Archibald NP - Last Filed: 02/04/20 13:49> Assessment and Plan: Today Franko tolerated laying flat for his orthostatic blood pressures quite well and for quite some time. His orthostatic blood pressures remained with systolics above 100 and he denied any concerning signs and symptoms such as dizziness or lightheadedness or feeling like passing out his scrotal swelling has improved, 1-2+ pitting thigh and leg edema; and 2+ pedal edema. Acute on Chronic congestive Systolic heart failure Exacerbation, Heart attack or [place], Cardiac ischemia caused by fluid overload (mildly elevated Troponins are stable when checked, noted in October 2019 as well), Respiratory distress caused by Systolic Heart Failure, low albumin causing anasarca). Continue diuresis at home after discharge using 40mg oral lasix BID, up from the 40mg daily lasix. also started Sprinolactone and he should continue at discharge. 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 continue replenishing magnesium orally at home after discharge Continue fluid restriction. follow-up with his Organisation And Methods Analyst Dr. Duncan's office, continue incentive spirometry continue Eliquis for PE Ordered Mucinex and Albuterol. based on the recent echo findings I have advised him to discuss AICD with his order caller and follow up with a cardiovascular surgeon instructed Franko to check his blood pressure and heart rate and pulse oximetry at home after discharge on a daily basis <Karmen Archibald NP - Last Filed: 02/04/20 13:49> (2) Hypomagnesemia: Code(s): E83.42 - Hypomagnesemia <Karmen Archibald NP - Last Filed: 02/04/20 13:49> Status: Acute <Karmen Archibald NP - Last Filed: 02/04/20 13:49> Assessment and Plan: again low mag <2 replenished that with 4 g of Mag IV this morning continued oral Mag t.i.d. at discharge repeat Mag level will be completed in 3 days, along with CBC, CMP, and BNP. Dr. Man that he would follow-up with the patient regarding labs and replenishment of electrolytes <Karmen Archibald NP - Last Filed: 02/04/20 13:49> (3) Diabetes mellitus type 2, uncontrolled: Qualifiers: Glycemic state: with hyperglycemia Qualified Code(s): E11.65 - Type 2 diabetes mellitus with hyperglycemia <Karmen Archibald NP - Last Filed: 02/04/20 13:49> Code(s): E11.65 - Type 2 diabetes mellitus with hyperglycemia <Karmen Archibald NP - Last Filed: 02/04/20 13:49> Status: Acute <Karmen Archibald NP - Last Filed: 02/04/20 13:49> Assessment and Plan: glucose levels have been 100s. continue monitoring glucose levels toloerating low sodium diet continue Lantus and Trulicity at discharge, as those were his home medications that he is used to and they controllrf his blood sugars well while in the hospital instructed patient to use his home glucometer to check his own glucose/ blood sugar levels at home 3 to 4 times a day especially prior to dosing himself with insulin <Karmen Archibald NP - Last Filed: 02/04/20 13:49> (4) Cardiac ischemia: Code(s): I25.9 - Chronic ischemic heart disease, unspecified <Karmen Archibald NP - Last Filed: 02/04/20 13:49> Status: Acute <Karmen Archibald NP - Last Filed: 02/04/20 13:49> Assessment and Plan: may be related to Acute on Chronic congestive Systolic heart failure Exacerbation, Cardiac ischemia caused by fluid overload (mildly elevated
[2020-02-04] MEDS: MAGNESIUM SULF 4 GM/WATER100ML 4 GM/100 ML BAG IVPB (11:30)
[2020-02-04] MEDS: MAGNESIUM SULF 4 GM/WATER100ML 4 GM/100 ML BAG 100 GM (11:32)
[2020-02-04 11:46] LABS: Glucose Point of Care 244 (65-105)
[2020-02-04] MEDS: FLUTICASONE PROP 110 MCG INHALER 12 GM (*SP) 2 PUFF INHALATION (12:20)
[2020-02-04] MEDS: TOLNAFTATE 1% POWDER 45 GM BTL 1 APPLIC TOPICAL (12:20)
--- NOTE | 2020-02-04 13:15 | PC.NURSE ---
Discharge instructions given, verbal and written. Patient will go over discharge instructions with when they get home.
--- NOTE | 2020-02-14 16:07 | PC.NURSE ---
DISCHARGE FOLLOW UP CALL: States admission stay was good. Was upset at first because ER doctor wanted to send him to [place]. Met Dr. Man while inpatient and did follow up with him after discharge, I feel like I met a new friend , states he really likes Dr. Man. Has been taking his medications as prescribed. Weighing self daily. Rash to groin is gone. Staying active and eating healthier. Discharge was prolonged, states he felt like it was back and forth too much, they would tell me in the morning that I would probably go home, and then by the evening they would let me know I was staying another night, and I felt good, I guess I didn't understand that. No other concerns, care received was excellent , good staff .
--- NOTE | 2020-03-05 08:11 | PCOTNOTE ---
Patient is discharged from skilled OT services as he returned home with family. See patient's last treatment note for patient's skills and level of function upon discharge. [place]
== END 2020-02-04 13:40 | disposition home or self-care (01) | DRG 291 ==
LOC: CHSED 15:45 → CHS2ND 17:23
PROVIDERS: Nurse Practitioner; Admitting Provider Family Medicine; Emergency Provider Family Medicine; PCP Nurse Practitioner Family; Visit Provider Family Medicine
DX: I11.0 Hypertensive heart disease with heart failure (principal); I26.99 Other pulmonary embolism without acute cor pulmonale; E11.65 Type 2 diabetes mellitus with hyperglycemia; F41.1 Generalized anxiety disorder; E83.42 Hypomagnesemia; R60.1 Generalized edema; I50.23 Acute on chronic systolic (congestive) heart failure; Z98.890 Other specified postprocedural states; I35.1 Nonrheumatic aortic (valve) insufficiency; I34.0 Nonrheumatic mitral (valve) insufficiency; E88.09 Other disorders of plasma-protein metabolism, not elsewhere classified; I25.9 Chronic ischemic heart disease, unspecified; E66.9 Obesity, unspecified; Z87.74 Personal history of (corrected) congenital malformations of heart and circulatory system
CPT/HCPCS: 36415; 36600; 71045; 71046; 71275; 80048; 80053; 82306; 82550; 82553; 82805; 83605; 83735; 83880; 84100; 84443; 84484; 85025; 85027; 85380; 85610; 85730; 93005; 93306; 93970; 94618; 96365; 96372; 96375; 97110; 97161; 97165; 97530; 97535; 99285; A9270; J1650; J1815; J1940; J3475; Q9965

== ENCOUNTER 2020-02-08 15:13 | Outpatient (CLI) | payer MEDICARE, SELFPAY ==
[2020-02-08 15:35] LABS: Basophils Absolute Auto 0.05 K/mm3 (0.00-0.10); Basophils Percent Auto 0.8 % (0.0-1.0); Eosinophils Absolute Auto 0.08 K/mm3 (0.02-0.50); Eosinophils Percent Auto 1.3 % (1.0-6.0); Hematocrit 39.9 % (40.0-54.0); Hemoglobin 12.7 g/dL (14.0-18.0); Immature Granulocyte Absolute 0.02 K/mm3 (0.00-0.00); Immature Granulocyte Percent A 0.3 % (0.0-0.0); Lymphocytes Absolute Auto 1.21 K/mm3 (1.10-4.50); Lymphocytes Percent Auto 19.2 % (18.0-42.0); Mean Corpuscular HGB Conc 31.8 g/dL (32.0-36.0); Mean Corpuscular Hemoglobin 26.7 pg (27.0-31.0); Mean Platelet Volume 10.6 fl (8.7-11.0); Monocytes Percent Auto 11.1 % (2.0-11.0); Neutrophils Absolute Auto 4.3 K/mm3 (1.7-7.2); Neutrophils Percent Auto 67.3 % (50.0-70.0); Platelet Count Result 235 K/mm3 (150-420); Red Blood Count 4.75 M/mm3 (4.70-6.10); White Blood Count 6.3 K/mm3 (4.8-10.8)
[2020-02-08 16:28] LABS: Alanine Aminotransferase 29 U/L (16-63); Albumin Level 2.7 g/dL (3.4-5.0); Alkaline Phosphatase 201 U/L (46-116); Anion Gap 13.6 mmol/L (7-16); Aspartate Amino Transferase 27 U/L (15-37); Bilirubin,Total 0.4 mg/dL (0.00-1.00); Blood Urea Nitrogen 17 mg/dL (7-18); Calcium 8.6 mg/dL (8.5-10.1); Carbon Dioxide 29 mmol/L (21-32); Chloride 98 mmol/L (98-108); Estimated Glomerular Filt Rate > 60; Glucose 163 mg/dL (70-99); Magnesium 1.4 mg/dL (1.8-2.4); Osmolality Calculated 287 mOsm/kg (285-295); Potassium 4.6 mmol/L (3.5-5.1); Sodium 136 mmol/L (136-145); Total Protein 6.5 g/dL (6.4-8.2)
[2020-02-08 16:44] LABS: BNP 1400 pg/mL (0-100)
== END 2020-02-08 15:14 | disposition home or self-care (01) ==
LOC: CHSLAB 15:15
PROVIDERS: PCP Nurse Practitioner Family; Visit Provider Nurse Practitioner
DX: E83.42 Hypomagnesemia (principal); I50.23 Acute on chronic systolic (congestive) heart failure; I25.9 Chronic ischemic heart disease, unspecified; E11.65 Type 2 diabetes mellitus with hyperglycemia; I26.99 Other pulmonary embolism without acute cor pulmonale
CPT/HCPCS: 36415; 80053; 83735; 83880; 85025

== ENCOUNTER 2020-04-24 07:23 | Outpatient (RCR) | payer MEDICARE, MEDICAID, SELFPAY ==
[2020-04-02 14:54] VITALS: BMI 31.6
== END 2020-06-18 09:09 | disposition home or self-care (01) ==
LOC: ANHWOC 07:23
PROVIDERS: PCP Nurse Practitioner Family; Visit Provider Family Medicine
DX: R21 Rash and other nonspecific skin eruption (principal); L08.9 Local infection of the skin and subcutaneous tissue, unspecified
CPT/HCPCS: 99212; 99213; G0463